=== PATIENT | male | born 1940 | race Caucasian/White ===

== ENCOUNTER 2017-03-02 05:35 | Inpatient (IN) | payer OTHER ==
[2017-02-18 10:32] VITALS: BMI 34.0
--- NOTE | 2017-02-18 11:08 | PAT Medication Instructions ---
Service Date Feb 18, 2017. Current Home Medication List Allopurinol (Zyloprim), 150 MG PO QAM Amlodipine (Norvasc), 5 MG PO QAM Aspirin Enteric Coated (Ecotrin Or Generic *), 81 MG PO QPM Atorvastatin (Lipitor), 40 MG PO HS Calcitriol (Rocaltrol Cap), 0.25 MCG PO QAM Lisinopril (Prinivil), 20 MG PO BID Terazosin (Hytrin), 5 MG PO HS Medication Instructions For Your Scheduled Surgery - Check with surgeon/decision analyst for instructions: Aspirin Enteric Coated (Ecotrin Or Generic *), 81 MG PO QPM - Hold the following medications the morning of surgery: Lisinopril (Prinivil), 20 MG PO BID Calcitriol (Rocaltrol Cap), 0.25 MCG PO QAM - Take the following medications the morning of surgery with a sip of water: Allopurinol (Zyloprim), 150 MG PO QAM Amlodipine (Norvasc), 5 MG PO QAM - Hold the following medications as scheduled the night before surgery: Lisinopril (Prinivil), 20 MG PO BID - Take the following medications as scheduled the night before surgery: Terazosin (Hytrin), 5 MG PO HS Atorvastatin (Lipitor), 40 MG PO HS If you have any questions please call us at [phone] or [phone] or [phone]
[2017-02-18 11:49] LABS: BASO % 0.6 %; BASO ABS # 0.04 K/uL (0-0.2); COMPLETE YES; EOS % 8.4 %; HEMATOCRIT 39.1 % (42-52); LYMPH % 18.3 %; LYMPH ABS # 1.22 K/uL (1.2-3.4); MEAN CELL VOLUME 90.7 fL (80-100); MEAN CORPUSCULAR HEMOGLOBIN 31.3 pg (25-34); MEAN CORPUSCULAR HGB CONC 34.5 g/dl (32-36); MEAN PLATELET VOLUME 10.1 fL (7.4-10.4); MONO % 8.4 %; NEUT % 64.3 %; PLATELET COUNT 211 K/uL (130-400); RED BLOOD COUNT 4.31 M/uL (4.7-6.1); WHITE BLOOD COUNT 6.67 K/uL (4.8-10.8)
[2017-02-18 11:53] LABS: URINE APPEARANCE CLEAR (CLEAR); URINE BILIRUBIN NEG (NEG); URINE COLOR YELLOW; URINE NITRITE NEG (NEG); URINE SPECIFIC GRAVITY 1.019 (1.000-1.030); UROBILINOGEN NEG (NEG); ZZUR CULT IF INDIC CLEAN CATCH NO
[2017-02-18 11:58] LABS: MANUAL MICROSCOPIC REQUIRED? NO; REVIEW REQ? NO
[2017-02-18 12:01] LABS: BUN/CREATININE RATIO 14.9 (10-20); CREATININE 3.2 mg/dl (0.60-1.40); POTASSIUM 5.8 mmol/L (3.5-5.1)
[~2017-03-02] VITALS: Ht 167.6 cm; Wt 97.3 kg
[2017-03-02] VITALS (9 sets, daily range): BP systolic 109–168; BP diastolic 63–84; PULSE 80–98; TEMP 36.3–36.6; O2SAT 96–99; Ht 167.6 cm; Wt 97.3 kg
[~2017-03-02 05:35] MED LIST: ALLO300T2 PO; AMLO-110 PO; ASPEC81 PO; ATOR-24 PO; CALC0.2510 PO; LISI20TA3 PO; TERA5CAP PO
[2017-03-02] MEDS ORDERED: SODIUM CHLORIDE 0.9% 1000ML 1,000 ML IV SCH ×2 (06:00→10:45)
[2017-03-02] MEDS ORDERED: CEFAZOLIN 2000 MG/60 ML D5W IV SCH (06:00)
[2017-03-02] MEDS ORDERED: FENTANYL CITRATE INJ 50 MCG/1 ML 2 ML VIAL ONE ×3 (06:49→10:25)
[2017-03-02] MEDS ORDERED: MIDAZOLAM HCL 1 MG/ML 2ML VIAL ONE (06:49)
[2017-03-02 06:51] LABS: BUN/CREATININE RATIO 17.4 (10-20); CALCIUM 8.9 mg/dl (8.5-10.1); CREATININE 2.8 mg/dl (0.60-1.40)
[2017-03-02] MEDS ORDERED: BUPIVACAINE/EPINEPHRINE 0.5% MPF 1:200,000 10 ML VIAL ONE (06:57)
[2017-03-02] MEDS ORDERED: SODIUM CHLORIDE 0.9% PF 50 ML VIAL ONE (06:57)
[2017-03-02] MEDS ORDERED: BACITRACIN 50000 UNIT VIAL ONE (06:57)
--- NOTE | 2017-03-02 07:28 | History & Physical Bridge Note ---
H&P Re-Evaluation Bridge Note: I have examined the patient, reviewed the History & Physical and in the interval since the performance of the History & Physical I have noted the following changes of clinical significance: No changes noted
--- NOTE | 2017-03-02 07:29 | History and Physical ---
History & Physical Date Mar 02, 2017. Chief Complaint Back and leg pain History of Present Illness The patient is a 76 year old male with complaints of Additional History Hepatic Disease: No Endocrine Disorder: No Kidney Disease: No Hypertension: Yes Heart Disease: No Bleeding Tendencies: No Infectious Diseases: No Allergies Coded Allergies: Acetaminophen (Verified Adverse Reaction, Intermediate, N/V, 03/02/17) Oxycodone (Verified Adverse Reaction, Unknown, n/v, 03/02/17) Home Medications Scheduled Allopurinol (Zyloprim), 150 MG PO QAM Amlodipine (Norvasc), 5 MG PO QAM Aspirin Enteric Coated (Ecotrin Or Generic *), 81 MG PO QPM Atorvastatin (Lipitor), 40 MG PO HS Calcitriol (Rocaltrol Cap), 0.25 MCG PO QAM Lisinopril (Prinivil), 20 MG PO BID Terazosin (Hytrin), 5 MG PO HS Physical Examination Skin: warm/dry, no rash Eyes: normal inspection, EOMI, sclerae normal ENT: normal ENT inspection, pharynx normal Head: normocephalic, atraumatic Neck: supple, no adenopathy, trachea midline Respiratory/Chest: lungs clear, normal breath sounds, no respiratory distress Cardiovascular: regular rate, rhythm, no edema, no murmur Abdomen / GI: normal bowel sounds, non tender Back: normal inspection Extremities: normal inspection, normal range of motion Neurologic/Psych: no motor/sensory deficits, alert, normal reflexes, oriented x 3 Diagnosis Spinal stenosis Plan of Treatment Number decompression L2 3 with removal of instrumentation L3 to S1
[2017-03-02] MEDS ORDERED: EpHEDrine SULFATE INJ 50 MG/ML AMP IV PRN (08:00)
[2017-03-02] MEDS ORDERED: HYDROmorphone INJ 2 MG/ML SYR/VIAL ONE ×3 (08:00→10:43)
[2017-03-02] MEDS ORDERED: ONDANSETRON INJ 2 MG/ML 2 ML VIAL IV PRN ×2 (08:00→10:45)
[2017-03-02] MEDS ORDERED: FENTANYL CITRATE INJ 50 MCG/1 ML 2 ML VIAL IV PRN (08:00)
[2017-03-02] MEDS ORDERED: HYDROmorphone INJ 1 MG/ML SYR IV PRN (08:00)
[2017-03-02] MEDS ORDERED: ATROPINE SULFATE 0.1 MG/ML 5ML SYR IV PRN (08:00)
--- NOTE | 2017-03-02 08:05 | Progress Note ---
Progress Note Date of Service Mar 02, 2017. Progress Note Arterial line placed in right wrist in ASU II in preparation for back surgery with Dr. Lane. Right wrist prepped with chlorhexidine and draped with sterile towels. Site infiltrated with 0.5 cc of 2% lidocaine. 20 G angiocath placed under sterile technique utilizing sterile gloves, surgical hats and masks. Catheter threaded using seldinger technique with return of pulsatile, bright red blood. Site covered with occlusive dressing and taped in place. Waveform consistent with correct arterial placement. After placement, fingers of right hand had normal perfusion. Patient tolerated procedure well without complications.
[2017-03-02] MEDS ORDERED: ALBUMIN HUMAN 5% 12.5 GM/250 ML VIAL IV ONE ×2 (09:38→10:30)
[2017-03-02] MEDS ORDERED: ROCURONIUM BROMIDE 10 MG/ML 5 ML VIAL ONE (10:16)
[2017-03-02] MEDS ORDERED: DEXAMETHASONE SOD INJ 4 MG/ML VIAL ONE (10:16)
[2017-03-02] MEDS ORDERED: PROPOFOL IV EMULSION 10 MG/ML 20 ML VIAL IV ONE (10:16)
[2017-03-02] MEDS ORDERED: LIDOCAINE HCL 2% 2 ML VIAL (20MG/ML) ONE (10:16)
[2017-03-02] MEDS ORDERED: FLOSEAL HEMOSTATIC MATRIX 10ML TOP ONE (10:20)
[2017-03-02 10:24] LABS: HEMATOCRIT 31.6 % (42-52)
--- NOTE | 2017-03-02 10:33 | DIAGNOSTIC IMAGING REPORT ---
LUMBAR SPINE, INTRAOPERATIVE FLUOROSCOPY HISTORY: L3-S1 hardware removal with L2 L4 decompression and fusion. FLUOROSCOPY TIME: 8 seconds. FINDINGS: Intraoperative fluoroscopy was provided for the lumbar spine. 2 fluoroscopic spot images were obtained. There is a single screw remaining within the left S1 location. There is posterior decompression fusion from L2 through L4 with pedicle screws and rods. The hardware appears intact. IMPRESSION: Fluoroscopy provided for a L2-L4 posterior decompression and fusion. Electronically signed by: Prabhjot Reeder M.D. 03/02/2017 10:32 AM Dictated Date/Time: 03/02/2017 10:31 AM
[2017-03-02] MEDS ORDERED: PHENYLEPHRINE 100MCG/ML 5ML SYR ONE (10:44)
[2017-03-02] MEDS ORDERED: ONDANSETRON INJ 2 MG/ML 2 ML VIAL ONE (10:44)
[2017-03-02] MEDS ORDERED: EpHEDrine SULFATE 50MG/5ML SYR ONE (10:44)
[2017-03-02] MEDS ORDERED: GLYCOPYRROLATE INJ 0.2 MG/ML VIAL ONE (10:44)
[2017-03-02] MEDS ORDERED: NEOSTIGMINE METHYLSULFATE 1 MG/ML 10ML VIAL ONE (10:44)
[2017-03-02] MEDS ORDERED: SOD PHOSPHATE/SOD BIPHOSPHATE ENEMA 132 ML BTL PR PRN (10:45)
[2017-03-02] MEDS ORDERED: PROMETHAZINE HCL INJ 12.5 MG in SODIUM CHLORIDE 0.9% 50ML 50 ML IV PRN (10:45)
[2017-03-02] MEDS ORDERED: LORAZEPAM 0.5 MG TAB PO PRN (10:45)
[2017-03-02] MEDS ORDERED: ALUMINUM/MAGNESIUM SUSP 30 ML UDC PO PRN (10:45)
[2017-03-02] MEDS ORDERED: LORAZEPAM INJ 0.5 MG in SYRINGE 0.75 ML IV PRN (10:45)
[2017-03-02] MEDS ORDERED: FAMOTIDINE 20 MG TAB PO PRN (10:45)
[2017-03-02] MEDS ORDERED: BISACODYL 10 MG SUPP PR PRN (10:45)
[2017-03-02] MEDS ORDERED: NALOXONE HCL 0.4 MG/1 ML VIAL/CARP IV PRN ×2 (10:45)
[2017-03-02] MEDS ORDERED: DO NOT ADMINISTER PNEUMOCOCCAL VACCINE PRN ×2 (10:45)
[2017-03-02] MEDS ORDERED: METOCLOPRAMIDE HCL INJ 5 MG/ML 2 ML VIAL IV PRN (10:45)
[2017-03-02] MEDS ORDERED: DO NOT ADMINISTER FLU VACCINE PRN ×3 (10:45)
[2017-03-02] MEDS ORDERED: hydrOXYzine HCL 25 MG TAB PO PRN (10:45)
[2017-03-02] MEDS ORDERED: MAGNESIUM HYDROXIDE SUSP 30 ML UDC PO PRN (10:45)
--- NOTE | 2017-03-02 10:53 | [facility] Operative Report ---
Operative Report Operative Date Mar 02, 2017. Pre-Operative Diagnosis Lumbar Spinal Stenosis Post-Operative Diagnosis Lumbar Spinal Stenosis Procedure(s) Performed #1 removal of posterior segmental instrumentation L3 4 L4 5 L5-S1. #2 expiration of fusion L3 4 L4 5 L5-S1. #3 lumbar decompression medial facetectomies foraminotomies L2 3. #4 posterior spinal fusion L2 3. #5 placement posterior instrumentation L2 3 L3 4. #6 interbody fusion L2 3. #7 placement peek cage 12 x 26 mm at L2-3. #7 placement of locally harvested morcellized autograft in the posterior lateral gutters. #8 placement infuse collagen sponge combined with Master graft in the posterior lateral gutters DBM in the interbody space. Surgeon Ip Architect Surgeon(s) None Estimated Blood Loss 775ml Findings Lumbar spinal stenosis Specimens A. Removed Lumbar Hardware Description of Procedure Patient was met with preoperative early case discussed all questions are dressed. After informed consent patient was taken back to the operative suite and after undergoing general intubation placed in a prone position Tomás table top Jaime frame all bony promises well-padded eyes inspected to ensure no external pressure. This point the lumbar spine is prepped and draped in the normal sterile fashion. Sharp dissection with the assistance of Bovie cautery was performed onto an exposing the lamina of L2 and instrumentation at L3-L4 L5- S1 levels bilaterally. Then proceeded remove the hardware bilaterally. I was unable to remove the right S1 pedicle screw in its entirety. I did explore the fusion mass noting it to be intact. Then performed a complete laminectomy of L2 addressing severe lateral recess and foraminal disease bilaterally. At this complete pedicle screws are placed in L2 L3 L4 bilaterally with the assistance of fluoroscopy in the properly sized betina placed. Through a transforaminal approach on the left complete discectomy of L2-3 was performed and plate created to subcortical bleeding bone and a 12 x 26 mm peek cage filled with DBM tapped in position. The rods were then locked and final position bilaterally. 15 round SELINA drain inserted. Incision then closed with 1 Vicryl in the fascia 2- 0 Vicryl subcutaneous the 4-0 Monocryl for final skin closure Steri-Strip sterile dressing placed patient we can take PACU stable condition. I attest to the content of the Intraoperative Record and any orders documented therein. Any exceptions are noted below.
[2017-03-02] MEDS ORDERED: HYDROmorphone HCL 0.5MG/ML 50 ML CASSETTE ONE (10:58)
[2017-03-02] MEDS ORDERED: ESMOLOL HCL 10 MG/ML 10 ML VIAL ONE (11:04)
--- NOTE | 2017-03-02 11:44 | Anesthesiology Progress Note ---
Anesthesia Post Op Note Date & Time Mar 02, 2017 at 11:44 Vital Signs Pain Intensity: 0 Vital Signs Past 12 Hours Date Time Temp Pulse Resp B/P (MAP) Pulse Ox O2 Delivery O2 Flow Rate FiO2 03/02/17 11:28 36.3 96 19 129/55 96 Nasal Cannula 4 03/02/17 11:27 95 12 97 03/02/17 11:27 96 12 03/02/17 11:26 134/63 03/02/17 11:22 96 14 03/02/17 11:22 96 14 99 03/02/17 11:21 137/58 03/02/17 11:17 98 14 03/02/17 11:17 98 14 98 03/02/17 11:16 127/62 03/02/17 11:15 94 15 98 03/02/17 11:15 95 15 03/02/17 11:11 123/58 03/02/17 11:10 95 12 03/02/17 11:10 95 12 98 03/02/17 11:06 112/59 03/02/17 11:05 100 10 03/02/17 11:05 100 10 98 03/02/17 11:01 119/55 03/02/17 11:00 98 13 03/02/17 11:00 98 13 99 03/02/17 10:56 107/51 03/02/17 10:55 36.1 96 16 107/51 (68) 99 Mask 10 03/02/17 10:55 96 13 98 03/02/17 10:55 96 13 03/02/17 05:57 36.6 84 18 168/84 97 Room Air Notes Mental Status: alert / awake / arousable, participated in evaluation Pt Amnestic to Procedure: Yes Nausea / Vomiting: adequately controlled Pain: adequately controlled Airway Patency, RR, SpO2: stable & adequate BP & HR: stable & adequate Hydration State: stable & adequate Anesthetic Complications: no major complications apparent
[2017-03-02] MEDS: HYDROmorphone HCL 0.5MG/ML 50 ML CASSETTE IV PRN ×2 (12:03→14:50)
[2017-03-02] MEDS: SODIUM CHLORIDE 0.9% 1000ML 1,000 ML IV SCH ×2 (12:54→20:07)
[2017-03-02] MEDS: DEXAMETHASONE INJ 6 MG in SYRINGE 0 ML IV SCH (18:18)
[2017-03-02] MEDS: CEFAZOLIN IV 2,000 MG in DEXTROSE 5% 50ML 50 ML IV SCH (18:30)
[2017-03-02] MEDS: ASPIRIN 81 MG ECTAB PO SCH (20:27)
[2017-03-02] MEDS: DOCUSATE SODIUM/SENNA 50/8.6MG TAB PO SCH (20:28)
[2017-03-02] MEDS: ATORVASTATIN 20 MG TAB PO SCH (20:29)
[2017-03-02] MEDS: LISINOPRIL 20 MG TAB PO SCH (20:30)
[2017-03-03] VITALS (7 sets, daily range): BP systolic 120–159; BP diastolic 64–82; PULSE 77–99; TEMP 36.5–36.8; O2SAT 96–99
[2017-03-03] MEDS: SODIUM CHLORIDE 0.9% 1000ML 1,000 ML IV SCH (00:56)
[2017-03-03] MEDS: CEFAZOLIN IV 2,000 MG in DEXTROSE 5% 50ML 50 ML IV SCH (01:08)
[2017-03-03] MEDS: DEXAMETHASONE INJ 6 MG in SYRINGE 0 ML IV SCH ×2 (01:45→10:21)
[2017-03-03] MEDS ORDERED: HYDROmorphone INJ 1 MG/ML SYR IV PRN (06:00)
[2017-03-03] MEDS ORDERED: DC PCA SCH (06:00)
[2017-03-03] MEDS ORDERED: HYDROmorphone INJ 0.5 MG/0.5 ML SYR IV PRN (06:00)
[2017-03-03 06:59] LABS: COMPLETE YES; HEMATOCRIT 29.3 % (42-52); IG% 0.2 %; LYMPH % 3.5 %; LYMPH ABS # 0.54 K/uL (1.2-3.4); MEAN CORPUSCULAR HGB CONC 34.1 g/dl (32-36); MEAN PLATELET VOLUME 9.6 fL (7.4-10.4); MONO % 2.6 %; NEUT % 93.7 %; PLATELET COUNT 184 K/uL (130-400); RED BLOOD COUNT 3.33 M/uL (4.7-6.1); WHITE BLOOD COUNT 15.64 K/uL (4.8-10.8)
[2017-03-03] MEDS ORDERED: NURSING VERBAL MED ORDER ONE (07:00)
[2017-03-03 07:29] LABS: BUN/CREATININE RATIO 15.8 (10-20); CALCIUM 7.7 mg/dl (8.5-10.1); CREATININE 2.9 mg/dl (0.60-1.40); POTASSIUM 4.1 mmol/L (3.5-5.1)
[2017-03-03] MEDS: AMLODIPINE BESYLATE 5 MG TAB PO SCH (08:30)
[2017-03-03] MEDS: CALCITRIOL 0.25 MCG CAP PO SCH (08:30)
[2017-03-03] MEDS: LISINOPRIL 20 MG TAB PO SCH ×2 (08:30→20:26)
[2017-03-03] MEDS: ALLOPURINOL 300 MG TAB PO SCH (08:30)
--- NOTE | 2017-03-03 09:03 | Clinical Documentation Query ---
SELINA Ca : CLINICAL DOCUMENTATION QUERIES QUERY 1 OF 2 Patient is a 76 year old male who on 03/02 underwent elective posterior lumbar decompression, instrumentation removal, reinstrumentation and fusion of L2-3. BUN, creatinine, and estimated GFR on admission of 48 mg/dl, 3.20 mg/dl, and 18 ml/min. There is no documented history of CKD on this record. Historical GFR range from 12/27 to 07/30 was 35-46 ml/min, consistent with CKD stage 3. Please clarify as clinically appropriate. In your clinical opinion is this patient being managed for: ( ) ROSALIE, POA on chronic kidney disease, stage 3 ( ) Chronic kidney disease, stage 4 ( ) Other explanation of clinical findings (Please Explain) ( ) Unable to determine (Please Define) ( ) Need to Discuss ( ) Not Agree The medical record reflects the following clinical findings, treatment, and risk factors. Clinical Indicators: As above Treatment: Was recieving IVF, serial chemistries Risk Factors: Age, hypertension, Lisinopril QUERY 2 OF 2 H&P states only a past medical history of hypertension. However, home medication list includes: Allopurinol (Zyloprim), 150 MG PO QAM Amlodipine (Norvasc), 5 MG PO QAM Aspirin Enteric Coated (Ecotrin Or Generic *), 81 MG PO QPM Atorvastatin (Lipitor), 40 MG PO HS Calcitriol (Rocaltrol Cap), 0.25 MCG PO QAM Lisinopril (Prinivil), 20 MG PO BID Terazosin (Hytrin), 5 MG PO HS In your clinical opinion is this patient being managed for: ( ) GERD, hyperlipidemia, BPH, and gout ( ) Other explanation of clinical findings (Please Explain) ( ) Unable to determine (Please Define) ( ) Need to Discuss ( ) Not Agree The medical record reflects the following clinical findings, treatment, and risk factors. Clinical Indicators: As above Treatment: As above Risk Factors: Age, activity, diet, gender Please clarify and document your clinical opinion in the progress notes and discharge summary. Terms such as "probable", "suspected", "likely", "questionable", "possible", or "still to be ruled out" are acceptable. IF IN AGREEMENT, YOU MUST DOCUMENT ABOVE DIAGNOSTIC STATEMENT IN DAILY PROGRESS NOTES AND DISCHARGE SUMMARY. This document is not part of the patient's record. Thank You, Boaz Sam RN [phone]
[2017-03-03] MEDS ORDERED: ULT50X PO (11:49)
--- NOTE | 2017-03-03 11:50 | Discharge Instructions ---
Discharge Instructions Date of Service Mar 03, 2017. Admission Reason for Admission: Lumbar Spinal Stenosis Discharge Discharge Diagnosis / Problem: lumbar spinal stenosis Discharge Goals Goal(s): Improve function Activity Recommendations Activity Limitations: per Instructions/Follow-up section . Instructions / Follow-Up Instructions / Follow-Up ACTIVITY RECOMMENDATIONS: SELF CARE INSTRUCTIONS AFTER THORACIC/LUMBAR FUSIONS 1. You may walk to your tolerance. It is good exercise for your legs and back. Expect some back and intermittent leg aches and pains. 2. You may perform "counter-top" level activities (make a sandwich, colette with a project, etc.). 3. No bending or lifting of more than 10 pounds or back twisting of any nature (roll like a log when turning in bed). 4. You may ride in a car for 20-30 minutes at a time. No driving until after your first visit with your doctor. 5. Frequent changes of position and restricting sitting to 30 minutes at a time will help limit the amount of back spasms and stiffness you may experience. 6. You may discontinue the use of ambulatory aids (cane, crutches, etc.) once your strength and confidence allow. 7. You may consulting practice director the shower and let water strike your incision when you arrive home at least once daily. Do not take a tub bath, sit in a hot tub or go into a swimming pool until after your first recheck in the office. SPECIAL CARE INSTRUCTIONS: VERY IMPORTANT TO READ AND REVIEW A. Your surgical incision has been closed with a cosmetic suture under the skin that will dissolve in about 6 weeks. In 14 days, you can use a pair of clean scissors and cut the suture that is left outside of the skin at the ends of your incision. 1. The small skin tapes can be removed 7 days after surgery if they have not fallen off by that point. 2. You may keep the wound open to air as much as possible to promote healing after post-op day number 5 unless told otherwise by your doctor. 3. If you think the wound looks like it is becoming infected (redness or worsening drainage) and/or you are experiencing fever, chill or worsening back pain and muscle spasms, contact the office so that we may evaluate you as soon as possible. B. Complications are uncommon, but please contact us if you have any signs or symptoms of: 1. wound infection (fever higher than 102.5 degrees F, redness, separation of wound, drainage, or increasing pain from the incision) 2. blood clots in legs (pain, swelling, redness and warmth in legs) 3. urinary tract infection (fever higher than 102.5 degrees F, burning upon urination or increased frequency of urination) 4. nerve problems (inability to walk on your toes or heels, numbness, loss of bowel or bladder control) 5. any other symptoms that concern you C. Please call the office at if you have any concerns or questions about your operation or recovery. D. No smoking! Smoking drastically decreases the chance of a solid fusion. E. Do not take any anti-inflammatory medications (Indocin, Advil, Motrin, Aspirin, Naprosyn, etc.) as these may inhibit the chance of a solid fusion. Tylenol is okay to take for pain. MANAGING PAIN AFTER SPINAL SURGERY 1. Narcotic medication is intended for short-term use and will be provided for surgical pain. Surgical pain usually lasts for a period of 4-6 weeks. Narcotic medication includes Percocet, Vicodin, Darvocet, Tylenol #3 or Lortab. 2. Longer-term pain is more appropriately treated with non-narcotic medication such as Tylenol ES. 3. Muscle spasm is not appropriately treated with narcotics. Muscle relaxers such as Soma, Flexeril or Skelaxin can be used along with Tylenol ES. 4. Remember that we all live with some "aches and pains". This is not unusual or uncommon after an injury or as we get older. a. Back pain is expected and may include muscle spasms for 4 to 6 weeks after surgery. The pain should gradually improve. If the pain worsens for no apparent reason, please contact the office. b. Intermittent leg pain may also be experienced and should not be concerned about unless it worsens for no apparent reason. If so, please contact the office. 5. We will provide appropriate medication within the normal guidelines of their prescribed use. We will also be very cautious and aware of potential abuse and extended duration of patients' medication needs. a. Pain medications are for your comfort and to assist with sleep and rest so that the tissue can heal. They are not provided in order to return to normal activity and should not be used through the day. To do so or worsening pain at night can result from ongoing tissue damage and development of tolerance to the prescribed medicine. 6. Please allow 2-3 days to process refills. Prescriptions will not be mailed but must be picked up at the office. FOLLOW UP VISIT: Keep your scheduled follow-up appointment. Any questions, please call the office at . Current Hospital Diet Patient's current hospital diet: Low Sodium Diet (2gm Na), Low Potassium Diet ( 2g K), Renal Diet Discharge Diet Recommended Diet: Regular Diet Procedures Procedures Performed: #1 removal of posterior segmental instrumentation L3 4 L4 5 L5-S1. #2 expiration of fusion L3 4 L4 5 L5-S1. #3 lumbar decompression medial facetectomies foraminotomies L2 3. #4 posterior spinal fusion L2 3. #5 placement posterior instrumentation L2 3 L3 4. #6 interbody fusion L2 3. #7 placement peek cage 12 x 26 mm at L2-3. #7 placement of locally harvested morcellized autograft in the posterior lateral gutters. #8 placement infuse collagen sponge combined with Master graft in the posterior lateral gutters DBM in the interbody space. Pending Studies Studies pending at discharge: no Medical Emergencies . Who to Call and When: Medical Emergencies: If at any time you feel your situation is an emergency, please call 911 immediately. . Non-Emergent Contact Non-Emergency issues call your: Primary Care Provider . "Provider Documentation" section prepared by Travon Lane. . VTE Core Measure Inpt VTE Proph given/why not?: Yaz Langston, SCD's
--- NOTE | 2017-03-03 16:14 | Progress Note ---
Progress Note Date of Service Mar 03, 2017. Progress Note Patient's back pain is controlled. His leg symptoms are markedly improved. He is noting some numbness to left lower extremity around the foot. No other complaints at this time. On exam vital signs are stable SELINA drain decreasing appropriately. He has good strength testing. He appears comfortable. Assessment status post lumbar depression fusion. Planned this time will continue advance his activity and plan for possible discharge home Wednesday.
[2017-03-03] MEDS: TRAMADOL HCL 50 MG TAB PO PRN (20:24)
[2017-03-03] MEDS: ATORVASTATIN 20 MG TAB PO SCH (20:26)
[2017-03-03] MEDS: ASPIRIN 81 MG ECTAB PO SCH (20:26)
[2017-03-03] MEDS: DOCUSATE SODIUM/SENNA 50/8.6MG TAB PO SCH (20:27)
[2017-03-04] MEDS: POLYETHYLENE (MIRALAX) 17 GM PACK PO SCH ×2 (05:21→12:00)
[2017-03-04 07:30] VITALS: BP 126/82; PULSE 82; TEMP 36.5; O2SAT 99
[2017-03-04 07:38] VITALS: O2SAT 99
--- NOTE | 2017-03-04 08:18 | Discharge Summary ---
Orthopedic Discharge Summary Admission Date/Reason Mar 02, 2017 at 07:30 Lumbar Spinal Stenosis. Discharge Date/Disposition Mar 04, 2017 Home with services Diagnosis Principal Diagnosis: Lumbar spinal stenosis Admission Physical Exam As per Admitting History & Physical. Hospital Course Patient underwent lumbar decompression fusion tolerated this well as taken to the orthopedic 4 postop we. Postoperatively he progressed nicely leg symptoms markedly improved. He was discharged home postop day 3 with home health. Discharge orders and instructions found on the chart for further review. Discharge Instructions Please refer to the electronic Patient Visit Report (Discharge Instructions) for additional information.
[2017-03-04] MEDS: AMLODIPINE BESYLATE 5 MG TAB PO SCH (08:49)
[2017-03-04] MEDS: CALCITRIOL 0.25 MCG CAP PO SCH (08:49)
[2017-03-04] MEDS: LISINOPRIL 20 MG TAB PO SCH (08:49)
[2017-03-04] MEDS: ALLOPURINOL 300 MG TAB PO SCH (08:50)
[2017-03-04 10:27] VITALS: BP 126/82; PULSE 82; TEMP 36.5; O2SAT 99
[2017-03-04] MEDS: TRAMADOL HCL 50 MG TAB PO PRN ×2 (12:17→16:10)
[2017-03-04 15:33] VITALS: BP 135/76; PULSE 78; TEMP 36.6; O2SAT 99
== END 2017-03-04 16:24 | disposition home health service (06) | DRG 460 ==
LOC: C.ACU 05:35 → C.3E 07:30 → ENRESERV 11:26
PROVIDERS: ADMIT Orthopaedic Surgery Orthopaedic Surgery of the Spine; ATTEND Orthopaedic Surgery Orthopaedic Surgery of the Spine
PROC: 0SG10Z1 (ICD-10-PCS; principal; 2017-03-02 07:30)
PROC: 0SG00AJ Fusion of Lumbar Vertebral Joint with Interbody Fusion Device, Posterior Approach, Anterior Column, Open Approach (ICD-10-PCS; principal; 2017-03-02 07:30)
PROC: 0ST20ZZ Resection of Lumbar Vertebral Disc, Open Approach (ICD-10-PCS; principal; 2017-03-02 07:30)
PROC: 0SP304Z Removal of Internal Fixation Device from Lumbosacral Joint, Open Approach (ICD-10-PCS; principal; 2017-03-02 07:30)
PROC: 0SP004Z Removal of Internal Fixation Device from Lumbar Vertebral Joint, Open Approach (ICD-10-PCS; principal; 2017-03-02 07:30)
PROC: 03HY32Z Insertion of Monitoring Device into Upper Artery, Percutaneous Approach (ICD-10-PCS; 2017-03-02 07:30)
DX: M48.06 Spinal stenosis, lumbar region (principal); N18.4 Chronic kidney disease, stage 4 (severe); I12.9 Hypertensive chronic kidney disease with stage 1 through stage 4 chronic kidney disease, or unspecified chronic kidney disease; E78.5 Hyperlipidemia, unspecified; M10.9 Gout, unspecified; N40.0 Benign prostatic hyperplasia without lower urinary tract symptoms; G47.33 Obstructive sleep apnea (adult) (pediatric); E66.9 Obesity, unspecified; Z68.34 Body mass index [BMI] 34.0-34.9, adult; Z79.82 Long term (current) use of aspirin; Z79.899 Other long term (current) drug therapy; Z88.5 Allergy status to narcotic agent; Z88.6 Allergy status to analgesic agent